=== PATIENT | female | born 1960 | race Caucasian/White ===

== ENCOUNTER 2020-01-28 22:07 | Emergency (ER) | payer MEDICARE, MEDICAID, SELFPAY ==
[2020-01-28 22:11] VITALS: BP 142/72; PULSE 80; RESP 17; TEMP 36.9; O2SAT 99; BMI 20.1
--- NOTE | 2020-01-28 22:29 | EKG12_ITS ---
Test Reason : SOB Blood Pressure : / mmHG Vent. Rate : 075 BPM Atrial Rate : 075 BPM P-R Int : 124 ms QRS Dur : 086 ms QT Int : 422 ms P-R-T Axes : 073 044 050 degrees QTc Int : 471 ms Normal sinus rhythm Normal ECG Confirmed by BUFFY KRAMER, VALDEMAR ([id number]), editor dictionary THERESA FRY ([id number]) on 02/03/2020 8:13:53 AM Referred By: APPLE Confirmed By:VALDEMAR BAER MD
--- NOTE | 2020-01-28 22:29 | ED.VIS.GEN ---
History of Present Illness Chief Complaint: Shortness of Breath Informant: Patient Onset: Today Narrative: 59-year-old female with past medical history of hypertension presents with concern for shortness of breath. States that she has been intermittently short of breath over the past 2 months. States it got worse tonight while she was sitting watching TV. Denies any chest pain but does admit to left shoulder pain. Denies any nausea, vomiting, diaphoresis. Patient states that she has been drinking alcohol this evening. Patient is a current smoker. Past Medical History - Allergies and Home Meds Allergies/Adverse Reactions: Allergies ampicillin Allergy (Verified 01/28/20 22:11) PT UNSURE OF REACTION Primary Care Physician: NOT,DEFINED [NON-STAFF] - Past Medical History: - - HTN Surgical History: no surgical history Lives: Alone Alcohol: None Drugs: None Review of Systems General: Denies: Chills, Fever, Sweats Eyes: Denies: Visual changes - bilaterally, Diplopia ENT: Denies: Rhinorrhea, Sore throat Cardiovascular: Denies: Chest pain, Palpitations Respiratory: Reports: Dyspnea, Cough. Denies: Dyspnea on exertion Gastrointestinal: Denies: Abdominal pain, Nausea, Vomiting, Diarrhea, Melena, Hematochezia Genitourinary: Denies: Dysuria, Hematuria, Frequency Musculoskeletal: Denies: Back pain, Extremity Pain Skin: Denies: Rash, Wounds Neurological: Denies: Headache, Weakness, Numbness Physical Exam Vital Signs/Narrative: Vital Signs Temp Pulse Resp BP Pulse Ox 01/28/20 22:11 98.4 F 80 17 142/72 H 99 Inital Vital Signs reviewed: Yes General: Well nourished, Well developed, No Acute Distress Head: Normocephalic, Atraumatic Eyes: Perrl, EOMI ENT: Moist mucous membranes, No rhinorrhea Neck: Supple, Nontender Cardiovascular: Regular rate, Regular rhythm, No murmurs Respiratory: No distress, CTA bilaterally, Chest nontender Abdomen: Soft, Nontender, Nondistended, Normal bowel sounds Back: Nontender, Normal Inspection Extremities: Nontender, No edema Skin: Normal color, No rash Neurological: Alert, Oriented x3, Cranial nerves II-XII grossly intact, Normal Strength, Normal Sensation Psychological: Normal affect, Normal Mood Diagnostic/Tx/Re-eval Chest X-Ray - ED: 1 View, Normal Clinical Impression(s) from Imaging Studies Chest X-Ray 01/28/20 22:58 IMPRESSION: COPD. No pulmonary edema, congestive heart failure or confluent pneumonia. Electronically Signed: Lupe Santos MD at 23:42 EDT , Service support , Laboratory Data 01/28/20 01/28/20 01/28/20 22:45 22:45 22:45 WBC 7.3 RBC 4.31 Hgb 13.0 Hct 40.5 MCV 94.0 MCH 30.2 MCHC 32.1 RDW Std Deviation 43.7 RDW Coeff of Martha 12.6 Plt Count 311 MPV 10.2 Immature Gran % (Auto) 0.100 Neut % (Auto) 36.7 L Lymph % (Auto) 52.2 H Webster % (Auto) 6.3 Eos % (Auto) 3.9 Baso % (Auto) 0.8 Absolute Neuts (auto) 2.7 Absolute Lymphs (auto) 3.79 Nucleated RBC % 0 D-Dimer Quant (PE/DVT) 0.43 Sodium 145 Potassium 3.6 Chloride 111 H Carbon Dioxide 27.0 Anion Gap 7 BUN 10 Creatinine 0.84 Estim Creat Clear Calc 57.51 Est GFR (MDRD) Af Amer 90 Est GFR (MDRD) Non-Af 75 BUN/Creatinine Ratio 12.0 Glucose 87 Calcium 8.9 Troponin I < 0.015 - Rhythm Strip Rhythm Strip: Sinus Rhythm Rate: 75 Ectopy: None - EKG Initial EKG Interpretation: Sinus Rhythm - Normal sinus rhythm at 75 bpm. VT interval 124 ms. QTC of [address] ms. No evidence of ST elevation or depression at this time. - Medical Decision Making Appears well nontoxic. Vital signs within normal limits. Lungs clear. Chest x-ray negative. D-dimer negative. EKG nonischemic with a negative troponin. Patient will have outpatient coronavirus sent for testing. Patient will be given albuterol inhaler with concern for possible COPD exacerbation. Asked to return for new or worsening symptoms. Asked to isolate at home. Patient agreeable and discharged home in stable condition. Impression: 1. Dyspnea 2. History of COPD ED Disposition - Plan for ED Patient: Disposition: Home or Assisted Living Instructions: ED COPD Flare Prescriptions: Albuterol Inhaler [Ventolin Hfa] 1 - 2 puff INHALATION Q4H PRN PRN #1 inhaler PRN Reason: Wheezing Prescription Printed Referrals: Nora Harris MD [STAFF PHYSICIAN] - 2 Days
--- NOTE | 2020-01-28 22:29 | ED.RN ---
DR. CHIU AT BEDSIDE WITH PT. PT REPORTS THAT THE WORLD IS TERRIBLE BUT STATES SHE IS NOT SUICIDAL. PT CLEARED FROM DR. CHIU, DOES NOT REQUIRE SUICIDAL WORKUP AT THIS TIME.
[2020-01-28 22:53] VITALS: BP 138/68; PULSE 80; RESP 20; TEMP 36.9; O2SAT 100; O2SAT 97; O2SAT 98
[2020-01-28 22:54] LABS: Absolute Lymphocyte Count 3.79 X10^3/uL (0.83-4.51); Absolute Neutrophil Count 2.7 X10^3/uL (2.0-7.7); Basophil# 0.06 X10^3/uL; Basophil% 0.8 % (0-1); Eosinophil# 0.28 X10^3/uL; Eosinophils% 3.9 % (0-5); Hematocrit 40.5 % (37-47); Lymphocyte # 3.79 X10^3/ul (4.0); Lymphocyte % 52.2 % (19-41); Mean Corp Hgb Conc 32.1 g/dL (32-36); Mean Corpuscular Hgb 30.2 pg (27.0-32.0); Mean Platelet Vol. 10.2 fl (6.2-12.0); Monocyte# 0.46 X10^3/uL; Monocyte% 6.3 % (0-10); NRBC Flagged by Analyzer 0 % (0-5); Neutrophil # 2.66 X10^3/uL (2.7-7.7); Neutrophil % 36.7 % (47-70); Platelet Count 311 K/mm3 (150-450); RBC Distribution Width CV 12.6 % (11.6-14.6); RBC Distribution Width SD 43.7 fl (35.1-43.9); Red Blood Count 4.31 M/mm3 (4.2-5.4); White Blood Count 7.3 K/mm3 (4.4-11.0)
--- NOTE | 2020-01-28 22:58 | RAD_ITS ---
STUDY: X-RAY CHEST REASON FOR EXAM: Female, 59 years old. SOB; HISTORY OF COPD TECHNIQUE: Single AP portable view of the chest. COMPARISON: None. FINDINGS: There are superimposed monitor leads. There is hyperinflation of the lungs consistent with chronic obstructive lung disease (COPD). There is no demonstrated pleural abnormality. Normal size heart. Normal mediastinum and elan. Normal visualized pulmonary arteries. Normal visualized aortic arch and descending thoracic aorta. There are diffuse degenerative changes of the visualized thoracic spine. There are degenerative changes of the acromioclavicular joints. There is no demonstrated abnormality of the visualized soft tissue structures of the upper abdomen. RAD/Chest 1 View (Portable) IMPRESSION: COPD. No pulmonary edema, congestive heart failure or confluent pneumonia. Electronically Signed: Lupe Santos MD at 23:42 EDT , Service support ,
[2020-01-28 23:07] LABS: D-Dimer Quantitative (DVT/PE) 0.43 FEU/ug/m (0.27-0.49)
[2020-01-28 23:12] LABS: Anion Gap 7 (5-15); BUN 10 mg/dL (7-18); Calcium,Total 8.9 mg/dL (8.5-10.1); Chloride 111 mmol/L (98-107); Creatinine, Serum 0.84 mg/dL (0.55-1.02); EST Glomerular Filtration Rate 75 mL/min (>60); Est Glom Filt Rate - Afr Amer 90 mL/min (>60); Estimated Creatinine Clearance 57.51 ml/min; Glucose 87 mg/dL (74-106); Potassium 3.6 mmol/L (3.5-5.1); Sodium Level 145 mmol/L (136-145)
[2020-01-28 23:22] VITALS: BP 129/72; PULSE 73; RESP 20; TEMP 36.9; O2SAT 98
[2020-01-29 00:28] VITALS: BP 115/83; RESP 15; O2SAT 98
--- NOTE | 2020-01-29 00:29 | ED.RN ---
PT GIVEN WRITTEN AND VERBAL DISCHARGE INSTRUCTIONS, EDUCATED ON COVID AND QUARANTINE UNTIL RESULTS ARE RETURNED. PT EDUCATED ON COPD AND HOME GOING PRESCRIPTIONS ALSO. PT A+OX4 AND VERBALIZES UNDERSTANDING OF D/C INSTRUCTIONS AND DENIES ANY FURTHER QUESTIONS. PT IV D/C AND COVERED WITH 2X2 GAUZE AND PAPER TAPE. PT DRESSES SELF, AND CALLS FOR A CAB RIDE HOME.
== END 2020-01-29 00:32 | disposition home or self-care (01) ==
PROVIDERS: Emergency Provider Emergency Medicine
DX: R06.00 Dyspnea, unspecified (principal); J44.9 Chronic obstructive pulmonary disease, unspecified; I10 Essential (primary) hypertension; F17.200 Nicotine dependence, unspecified, uncomplicated
CPT/HCPCS: 36415; 71045; 80048; 84484; 85025; 85379; 87635; 93005; 94760; 99281; 99283; 99285; A4216; U0003